=== PATIENT | male | born 1960 | race Caucasian/White ===

== ENCOUNTER 2017-12-14 19:42 | Emergency (ER) | payer MEDICAID ==
[~2017-12-14] VITALS: Ht 172.7 cm; Wt 95.3 kg
[2017-12-14] MEDS ORDERED: Tetanus/Diptheria/Pertussis Vaccine 0.5ml Syr IM ONE (20:30)
[2017-12-14] MEDS ORDERED: Bacitracin Oint UD TOPIC ONE (21:00)
[2017-12-14] MEDS ORDERED: IBUPROFEN600 MG ORAL (21:22)
[2017-12-14] MEDS ORDERED: ACETAMINOPHEN-1 EAC1 ORAL (21:22)
[2017-12-14 21:27] VITALS: BP 139/73
--- NOTE | 2017-12-14 22:47 | Emergency Room Report ---
History of Present Illness General Chief Complaint: Lower Extremity Injury Source: Patient Present Illness HPI 57-year-old male presents ED for evaluation of right big toe pain. States that early this morning he slipped on wet floor and hyper flexed his right toe which went underneath his right foot. Patient presents with bruising and swelling to the right toe. Abrasion. Tetanus unknown. Pain is throbbing, 7 out of 10, nonradiating. Denies any other injuries. No other aggravating relieving factors. Denies any other associated symptoms Allergies: Coded Allergies: ERYTHROMYCIN BASE (Verified Allergy, Unknown, 12/14/17) THEOPHYLLINE (Verified Allergy, Unknown, 12/14/17) Patient History Past Medical History: asthma, COPD Past Surgical History: none Pertinent Family History: none Social History: Denies: smoking, alcohol use, drug use Immunizations: UTD Reviewed Nursing Documentation: PMH: Agreed; PSxH: Agreed Nursing Documentation-PMH Past Medical History: No History, Except For Hx Asthma: Yes Hx COPD: Yes Hx Neurological Problems: Yes - Peripheral neuropathy Review of Systems All Other Systems: negative except mentioned in HPI Physical Exam Vital Signs Date Time Temp Pulse Resp B/P (MAP) Pulse Ox O2 Delivery O2 Flow Rate FiO2 12/14/17 19:49 98.0 81 17 139/73 96 Room Air 98.1 Sp02 EP Interpretation: reviewed, normal General Appearance: no apparent distress, alert, GCS 15, non-toxic Head: normocephalic Eyes: bilateral eye normal inspection, bilateral eye PERRL ENT: normal ENT inspection Neck: normal inspection Respiratory: normal inspection Cardiovascular #1: normal inspection Gastrointestinal: normal inspection Rectal: deferred Genitourinary: no CVA tenderness Musculoskeletal: swelling - bruising/swelling R big toe Neurologic: alert, oriented x3, responsive, motor strength/tone normal, sensory intact, speech normal Psychiatric: normal inspection Skin: normal inspection Lymphatic: normal inspection Procedures Splinting Splinting : Consent: Verbal Hand-Made Type: coby tape Pre-Proc Neuro Vasc Exam: normal Post-Proc Neuro Vasc Exam: normal Patient Tolerated: Well Complications: None Medical Decision Making Diagnostic Impression: Primary Impression: Toe fracture Qualified Codes: S92.404A - Nondisplaced unspecified fracture of right great toe, initial encounter for closed fracture ER Course Hospital Course 57-year-old M presents to ED complaining of R big toe pain s/p trip and fall Differential diagnoses include: Fracture, dislocation, sprain, contusion Clinical course Patient placed on stretcher. After initial history and physical, I ordered TDAP , xrays of R toes Xrays prelim read shows avulsion fracture to the dorsal aspect of the distal phalanx of the big toe. Wound clean. Dressing applied. Coby tape applied. Discussed findings with patient. Placed in cast shoe. Patient safer discharge. Close follow-up with orthopedics/podiatry as outpatient Diagnosis - toe fracture Stable and discharged to home with prescription for Motrin, tylenol #3. apply ice, keep elevated. weight bear as tolerated. Followup with ortho. Return to ED if symptoms recur or worsenMy foot fracture discharge Other X-Ray Diagnostic Results Other X-Ray Diagnostic Results : X-Ray ordered: toes # of Views/Limited Vs Complete: 3 View Indication: Pain EP Interpretation: Yes Interpretation: no dislocation, no soft tissue swelling, other - avulsion fx dorsal aspect distal phalanx Impression: Other - fx Electronically Signed by: Electronically signed by Edvin Willis MD Last Vital Signs Date Time Temp Pulse Resp B/P (MAP) Pulse Ox O2 Delivery O2 Flow Rate FiO2 12/14/17 19:49 98.0 81 17 139/73 96 Room Air 98.1 Status: improved Disposition: HOME, SELF-CARE Condition: Stable Scripts Acetaminophen With Codeine (T#3) (TYLENOL #3 TAB*) Y Tab 1 TAB ORAL Q8H PRN for For Pain, #20 TAB Prov: Edvin Willis MD 12/14/17 Ibuprofen* (MOTRIN*) 600 Mg Tablet 600 MG ORAL Q8H PRN for For Pain, #30 TAB 0 Refills Prov: Edvin Willis MD 12/14/17 Patient Instructions: Toe Fracture, [id number] Edvin Willis MD Dec 14, 2017 22:47
--- NOTE | 2017-12-15 09:07 | Diagnostic Imaging Report ---
Indication: Toe pain Technique: 3 views of the right great toe Comparison: none Findings: There is a fracture of the posterior corner of the base of the first distal phalanx. This involves the articular surface. Fragment is slightly posteriorly displaced. Impression: Positive for distal phalangeal fracture This agrees with the impression of the emergency room physician reported in the electronic medical record
== END 2017-12-14 21:27 | disposition home or self-care (01) ==
LOC: EMR 20:24
DX: S92.421A Displaced fracture of distal phalanx of right great toe, initial encounter for closed fracture (principal); W18.49XA Other slipping, tripping and stumbling without falling, initial encounter; Y92.9 Unspecified place or not applicable; Z23 Encounter for immunization; J44.9 Chronic obstructive pulmonary disease, unspecified; Z88.1 Allergy status to other antibiotic agents; G62.9 Polyneuropathy, unspecified
CPT/HCPCS: 73660; 90471; 90715; 99283; Z7502